=== PATIENT | male | born 1955 | race American Indian/Alaskan Native ===

== ENCOUNTER 2017-06-06 13:31 | Outpatient (CLI) | payer MEDICAID ==
--- NOTE | 2017-06-06 16:08 | XRay Report ---
XRAY LEFT KNEE 4 THREE VIEWS: 06/06/17 CLINICAL: Left knee pain. FINDINGS: Mild osteopenia. The medial and lateral joint spaces are normal. A small lateral patellofemoral osteophyte.No joint effusion.Normal soft tissues. IMPRESSION: Minimal arthritis.
== END 2017-06-06 13:32 | disposition home or self-care (01) ==
LOC: SPVIMAG 13:31
PROVIDERS: ATTEND Orthopaedic Surgery Sports Medicine
DX: M17.12 Unilateral primary osteoarthritis, left knee (principal); M85.862 Other specified disorders of bone density and structure, left lower leg